=== PATIENT | female | born 1970 | race Two or more races ===

== ENCOUNTER 2021-08-07 18:04 | Emergency (ER) | payer SELFPAY ==
[~2021-08-07] VITALS: Ht 157.5 cm; Wt 59.0 kg
[2021-08-07] MEDS ORDERED: IV NORMAL SALINE 1000 ML BAG IV ONE (18:15)
--- NOTE | 2021-08-07 18:20 | NUR ---
During triaged family and patient refused to answer questions to get complete Hx. Patient and family did not want any test done after ERMD assess patient and walked out of ER.
== END 2021-08-07 18:38 | disposition left against medical advice (07) ==
LOC: ER 18:06
DX: Z53.21 Procedure and treatment not carried out due to patient leaving prior to being seen by health care provider (principal)